=== PATIENT | female | born 1960 | race Caucasian/White ===

== ENCOUNTER → 2017-10-07 | Outpatient (CLI) | payer BC ==
--- NOTE | 2017-10-07 13:49 | Diagnostic Imaging Report ---
EXAM: Thyroid Ultrasound INDICATION: NON TOXIC GOITER COMPARISON: None TECHNIQUE: Transverse and sagittal images were obtained of the thyroid gland. FINDINGS: Thyroid gland: Size: Right lobe 2.6 x 0.4 x 1.1 cm, Normal in size Left lobe 3.4 x 0.4 x 0.8 cm, Normal in size Isthmus 0.2 cm, Normal in size Appearance: Heterogeneous echotexture without increased vascularity Masses/Nodules: None Parathyroid: No focal parathyroid masses. IMPRESSION: Atrophic thyroid. No focal nodules. Signed by: Dr. Estrella Odom M.D. on 10/07/2017 1:45 PM
== END | disposition home or self-care (01) ==
LOC: US 11:49
PROVIDERS: ATTEND General Practice
DX: E04.9 Nontoxic goiter, unspecified (principal); E03.4 Atrophy of thyroid (acquired)
CPT/HCPCS: 76536

== ENCOUNTER 2021-09-29 11:30 | Emergency (ER) | payer BC ==
[~2021-09-29] VITALS: Ht 157.5 cm; Wt 77.1 kg
[2021-09-29] MEDS ORDERED: ELIQUIS5 MG PO (11:49)
[2021-09-29] MEDS ORDERED: ALPRAZOLAM0.5 MG PO (11:50)
[2021-09-29 12:22] LABS: BASOPHILS # (AUTO) 0.1 (0.0-0.1); BASOPHILS % 1.4 % (0.0-1.0); EOSINOPHILS # (AUTO) 0.3 (0.0-0.4); HEMATOCRIT 39.4 % (34.2-44.1); HEMOGLOBIN 12.7 g/dL (12.0-16.0); LYMPHOCYTES # (AUTO) 1.2 (1.0-3.2); LYMPHOCYTES % 18.8 % (18.0-39.1); MEAN CORPUSCULAR HEMOGLOBIN 31.5 pg (28-32); MEAN CORPUSCULAR HGB CONC 32.2 g/dL (31-35); MEAN CORPUSCULAR VOLUME 97.8 fL (81-99); MONOCYTES # (AUTO) 0.5 (0.2-0.8); MONOCYTES % 7.9 % (4.4-11.3); NEUTROPHILS # (AUTO) 4.4 (2.1-6.9); NEUTROPHILS % 66.4 % (38.7-80.0); PLATELET COUNT 237 x10e3/uL (140-360); RED BLOOD COUNT 4.03 x10e6/uL (3.6-5.1); RED CELL DISTRIBUTION WIDTH 12.8 % (11.7-14.4)
[2021-09-29 12:41] LABS: INR 0.91; PROTHROMBIN TIME 13.1 seconds (11.9-14.5)
[2021-09-29 12:42] LABS: PARTIAL THROMBOPLASTIN TIME 28.3 seconds (23.8-35.5)
[2021-09-29 12:50] LABS: ALANINE AMINOTRANSFERASE 36 IU/L (0-55); ALBUMIN 3.5 g/dL (3.5-5.0); ALBUMIN/GLOBULIN RATIO 0.9 (0.8-2.0); ALKALINE PHOSPHATASE 87 IU/L (40-150); ANION GAP 13.2 mmol/L (8-16); BLOOD UREA NITROGEN 15 mg/dL (7-26); BUN/CREATININE RATIO 16 (6-25); CALCIUM 8.6 mg/dL (8.4-10.2); CARBON DIOXIDE 31 mmol/L (22-29); CHLORIDE 103 mmol/L (98-107); CREATINE KINASE 80 IU/L (29-168); CREATININE, SERUM 0.94 mg/dL (0.57-1.11); GLUCOSE 93 mg/dL (74-118); POTASSIUM 4.2 mmol/L (3.5-5.1); SODIUM 143 mmol/L (136-145)
[2021-09-29] MEDS ORDERED: IOPAMIDOL 370 MG/ML 100 ML INFUS..BTL INJ ONE (13:09)
[2021-09-29] MEDS ORDERED: AZITHROMYCIN250 MG PO (14:24)
[2021-09-29] MEDS ORDERED: VENTOLIN HFA18 GM INH (14:24)
== END 2021-09-29 14:30 | disposition home or self-care (01) ==
LOC: ER 11:32
DX: J44.1 Chronic obstructive pulmonary disease with (acute) exacerbation (principal); I10 Essential (primary) hypertension; E03.9 Hypothyroidism, unspecified; Z86.718 Personal history of other venous thrombosis and embolism
CPT/HCPCS: 36415; 71260; 80053; 82550; 82553; 83880; 84484; 85025; 85610; 85730; 93005; 99284; Q9967

== ENCOUNTER 2023-04-15 20:35 | Inpatient (IN) | payer BC ==
[~2023-04-15] VITALS: Ht 157.5 cm; Wt 86.3 kg
[~2023-04-15 20:35] MED LIST: ALPRAZOLAM0.5 MG PO; AZITHROMYCIN250 MG PO; ELIQUIS5 MG PO; VENTOLIN HFA18 GM INH
[2023-04-15] MEDS ORDERED: ALBUTEROL/IPRATROPIUM 3 ML NEB NEB STA (20:39)
[2023-04-15 21:19] LABS: BASOPHILS # (AUTO) 0.1 (0.0-0.1); BASOPHILS % 0.5 % (0.0-1.0); EOSINOPHILS % 0.2 % (0.0-6.0); HEMATOCRIT 31.1 % (34.2-44.1); HEMOGLOBIN 10.1 g/dL (12.0-16.0); LYMPHOCYTES # (AUTO) 0.5 (1.0-3.2); MEAN CORPUSCULAR HGB CONC 32.5 g/dL (31-35); MEAN CORPUSCULAR VOLUME 98.4 fL (81-99); MONOCYTES # (AUTO) 0.4 (0.2-0.8); MONOCYTES % 3.6 % (4.4-11.3); NEUTROPHILS # (AUTO) 8.4 (2.1-6.9); NEUTROPHILS % 86.1 % (38.7-80.0); PLATELET COUNT 217 x10e3/uL (140-360); RED BLOOD COUNT 3.16 x10e6/uL (3.6-5.1); WHITE BLOOD COUNT 9.76 x10e3/uL (4.8-10.8)
[2023-04-15 21:36] LABS: ALBUMIN 3.6 g/dL (3.5-5.0); ALBUMIN/GLOBULIN RATIO 1.2 (0.8-2.0); ANION GAP 17.1 mmol/L (8-16); BILIRUBIN,TOTAL 0.6 mg/dL (0.2-1.2); CALCIUM 9.8 mg/dL (8.4-10.2); CREATININE, SERUM 1.03 mg/dL (0.57-1.11); POTASSIUM 4.1 mmol/L (3.5-5.1); TOTAL PROTEIN 6.7 g/dL (6.5-8.1)
[2023-04-15 21:42] LABS: TROPONIN I 0.028 ng/mL (0-0.300)
[2023-04-15 22:42] VITALS: PULSE 83; RESP 21; O2SAT 99
[2023-04-15] MEDS: SODIUM CHLORIDE 0.9% 1000ML 1,000 ML IV SCH (22:43)
[2023-04-16] VITALS (16 sets, daily range): BP systolic 114–165; BP diastolic 68–105; PULSE 59–103; RESP 18–24; TEMP 97.4–99.2; O2SAT 90–100
[2023-04-16] MEDS ORDERED: BREZTRI AEROS10.7 GM IH (00:12)
[2023-04-16] MEDS ORDERED: UNITHROID200 MCG PO (00:12)
[2023-04-16] MEDS ORDERED: UNITHROID75 MCG PO (00:12)
[2023-04-16] MEDS ORDERED: AIRSUPRA 90-810.7 GM INH (00:12)
[2023-04-16] MEDS ORDERED: LISINOPRIL-HCT1 EAC2 PO (00:28)
[2023-04-16] MEDS ORDERED: PREDNISONE10 MG PO (00:28)
[2023-04-16] MEDS: ALBUTEROL/IPRATROPIUM 3 ML NEB NEB PRN ×5 (03:32→23:31)
[2023-04-16] MEDS: SODIUM CHLORIDE 0.9% 1000ML 1,000 ML IV SCH ×3 (05:24→22:38)
[2023-04-16 05:36] LABS: BASOPHILS % 0.2 % (0.0-1.0); HEMATOCRIT 28.4 % (34.2-44.1); HEMOGLOBIN 9.4 g/dL (12.0-16.0); LYMPHOCYTES # (AUTO) 0.4 (1.0-3.2); LYMPHOCYTES % 4.6 % (18.0-39.1); MEAN CORPUSCULAR HEMOGLOBIN 31.8 pg (28-32); MEAN CORPUSCULAR HGB CONC 33.1 g/dL (31-35); MEAN CORPUSCULAR VOLUME 95.9 fL (81-99); MONOCYTES # (AUTO) 0.3 (0.2-0.8); MONOCYTES % 2.7 % (4.4-11.3); NEUTROPHILS # (AUTO) 8.1 (2.1-6.9); NEUTROPHILS % 85.3 % (38.7-80.0); PLATELET COUNT 217 x10e3/uL (140-360); RED BLOOD COUNT 2.96 x10e6/uL (3.6-5.1)
[2023-04-16] MEDS ORDERED: METHYLPREDNISOLONE SOD SUCC 125 MG/2ML VIAL IV SCH (06:00)
[2023-04-16 06:08] LABS: ALBUMIN 3.5 g/dL (3.5-5.0); ALBUMIN/GLOBULIN RATIO 1.3 (0.8-2.0); ANION GAP 14.4 mmol/L (8-16); BILIRUBIN,TOTAL 0.6 mg/dL (0.2-1.2); CALCIUM 9.6 mg/dL (8.4-10.2); POTASSIUM 4.4 mmol/L (3.5-5.1); TOTAL PROTEIN 6.3 g/dL (6.5-8.1)
[2023-04-16 06:13] LABS: TROPONIN I 0.216 ng/mL (0-0.300)
[2023-04-16] MEDS ORDERED: ALBUTEROL/IPRATROPIUM 3 ML NEB NEB SCH (07:00)
[2023-04-16 07:46] LABS: TROPONIN I 0.23 ng/mL (0-0.300)
[2023-04-16] MEDS ORDERED: ONDANSETRON HCL INJ 2MG/ML 2ML 2 MG/ML VIAL IV PRN (10:30)
[2023-04-16] MEDS ORDERED: GUAIFENESIN/DEXTROMETHORPHAN LIQD 5 ML UDC NG PRN (10:30)
[2023-04-16] MEDS ORDERED: METOPROLOL TARTRATE INJ 1 MG/ML VIAL IV PRN (10:30)
[2023-04-16] MEDS ORDERED: DOCUSATE SODIUM 100 MG CAP PO PRN (10:30)
[2023-04-16] MEDS ORDERED: SIMETHICONE 80 MG CHEW PO PRN (10:30)
[2023-04-16 11:19] LABS: BAND NEUTROPHILS % (MANUAL) 5 %; BASOPHILS % (MANUAL) 1 % (0-1.5); LYMPHOCYTES % (MANUAL) 6 % (19-48); METAMYELOCYTES % (MANUAL) 1 % (0-0); MONOCYTES % (MANUAL) 2 % (3.4-9.0); MYELOCYTES % (MANUAL) 2 % (0-0); NEUTROPHILS % (MANUAL) 83 % (40-74); PLATELET ESTIMATE ADEQUATE; PLATELET MORPHOLOGY COMMENT NORMAL
[2023-04-16] MEDS ORDERED: LEVOTHYROXINE SODIUM 75 MCG TAB PO SCH (11:30)
[2023-04-16] MEDS: ACETAMINOPHEN 325 MG TAB PO PRN ×2 (11:53→22:36)
[2023-04-16] MEDS ORDERED: DOXYCYCLINE HYCLATE TABLET 100 MG TAB PO SCH (14:00)
[2023-04-16] MEDS ORDERED: WATER STERILE 10 ML VIAL ONE (14:17)
[2023-04-16] MEDS ORDERED: SUCCINYLCHOLINE CHLORIDE 20 MG/ML 10ML VIAL ONE (14:17)
[2023-04-16] MEDS ORDERED: MIDAZOLAM HCL 2 MG/2 ML VIAL ONE (14:17)
[2023-04-16] MEDS ORDERED: VECURONIUM BROMIDE FOR INJ 20 MG VIAL ONE (14:17)
[2023-04-16] MEDS: METHYLPREDNISOLONE SOD SUCC 40 MG/ML VIAL 1ML IV SCH ×2 (15:13→22:37)
[2023-04-16] MEDS: BENZONATATE 100 MG CAP PO SCH ×2 (15:14→22:37)
[2023-04-16] MEDS: APIXABAN 5 MG TABLET PO SCH ×2 (16:40→16:44)
[2023-04-16] MEDS: ALPRAZOLAM 0.5 MG TAB PO SCH ×3 (16:40→22:35)
[2023-04-17] VITALS (22 sets, daily range): BP systolic 91–154; BP diastolic 45–79; PULSE 61–91; RESP 14–24; TEMP 97.4–99.4; O2SAT 94–100
[2023-04-17] MEDS: ALBUTEROL/IPRATROPIUM 3 ML NEB NEB PRN ×3 (03:50→19:09)
[2023-04-17] MEDS: METHYLPREDNISOLONE SOD SUCC 40 MG/ML VIAL 1ML IV SCH ×3 (05:07→21:05)
[2023-04-17] MEDS: GUAIFENESIN/CODEINE 5 ML LIQD PO PRN (05:32)
[2023-04-17 07:03] LABS: TROPONIN I 0.298 ng/mL (0-0.300)
[2023-04-17] MEDS: BENZONATATE 100 MG CAP PO SCH ×4 (08:08→21:05)
[2023-04-17] MEDS: APIXABAN 5 MG TABLET PO SCH ×2 (08:08→16:50)
[2023-04-17] MEDS: SODIUM CHLORIDE 0.9% 1000ML 1,000 ML IV SCH ×3 (08:09→21:05)
[2023-04-17] MEDS: ASPIRIN 81 MG ENTERIC COATED PO SCH (08:09)
[2023-04-17] MEDS ORDERED: LEVOTHYROXINE SODIUM 200 MCG PO SCH (09:00)
[2023-04-17] MEDS ORDERED: LISINOPRIL 2.5 MG TAB PO ONE (13:00)
[2023-04-17] MEDS: ALPRAZOLAM 0.5 MG TAB PO SCH (16:50)
[2023-04-17] MEDS ORDERED: METHYLPREDNISOLONE SOD SUCC 40 MG/ML VIAL 1ML IV ONE (17:45)
[2023-04-17] MEDS ORDERED: BUDESONIDE/FORMOTEROL 160/4.5MCG INHALER INH SCH (19:00)
[2023-04-17 19:16] LABS: ABG PCO2 68 mmHg (35-45)
[2023-04-17 19:17] LABS: ABG HCO3 33 mmol/L (22-26); ABG PO2 72 mmHg (80-105); ABG TCO2 35
[2023-04-18] VITALS (73 sets, daily range): BP systolic 88–154; BP diastolic 42–98; PULSE 63–138; RESP 12–28; TEMP 97.5–98; O2SAT 83–100
[2023-04-18] MEDS: GUAIFENESIN/CODEINE 5 ML LIQD PO PRN (04:22)
[2023-04-18] MEDS: ALBUTEROL/IPRATROPIUM 3 ML NEB NEB PRN ×4 (04:29→19:45)
[2023-04-18 05:25] LABS: BASOPHILS % 0.3 % (0.0-1.0); HEMOGLOBIN 8.5 g/dL (12.0-16.0); LYMPHOCYTES # (AUTO) 0.6 (1.0-3.2); LYMPHOCYTES % 8.8 % (18.0-39.1); MEAN CORPUSCULAR HEMOGLOBIN 31.8 pg (28-32); MEAN CORPUSCULAR HGB CONC 31.5 g/dL (31-35); MEAN CORPUSCULAR VOLUME 101.1 fL (81-99); MONOCYTES # (AUTO) 0.5 (0.2-0.8); MONOCYTES % 6.9 % (4.4-11.3); NEUTROPHILS # (AUTO) 5.5 (2.1-6.9); NEUTROPHILS % 77.5 % (38.7-80.0); PLATELET COUNT 167 x10e3/uL (140-360); RED BLOOD COUNT 2.67 x10e6/uL (3.6-5.1); RED CELL DISTRIBUTION WIDTH 13.5 % (11.7-14.4); WHITE BLOOD COUNT 7.07 x10e3/uL (4.8-10.8)
[2023-04-18 05:48] LABS: ANION GAP 11.5 mmol/L (8-16); CREATININE, SERUM 0.82 mg/dL (0.57-1.11); POTASSIUM 4.5 mmol/L (3.5-5.1)
[2023-04-18] MEDS: TIOTROPIUM 18 MCG INH POWDER INH SCH ×2 (06:00→10:04)
[2023-04-18] MEDS: SODIUM CHLORIDE 0.9% 1000ML 1,000 ML IV SCH ×2 (06:23→16:12)
[2023-04-18 07:20] LABS: LYMPHOCYTES % (MANUAL) 8 % (19-48); MONOCYTES % (MANUAL) 3 % (3.4-9.0); MYELOCYTES % (MANUAL) 1 % (0-0); NEUTROPHILS % (MANUAL) 88 % (40-74)
[2023-04-18 07:22] LABS: PLATELET ESTIMATE ADEQUATE; PLATELET MORPHOLOGY COMMENT NORMAL; RBC MORPHOLOGY COMMENT NORMAL
[2023-04-18] MEDS: METHYLPREDNISOLONE SOD SUCC 40 MG/ML VIAL 1ML IV SCH ×2 (08:39→21:09)
[2023-04-18] MEDS: LISINOPRIL 2.5 MG TAB PO SCH (08:40)
[2023-04-18] MEDS: APIXABAN 5 MG TABLET PO SCH ×2 (08:40→16:12)
[2023-04-18] MEDS: BENZONATATE 100 MG CAP PO SCH ×3 (08:40→21:00)
[2023-04-18] MEDS: ALPRAZOLAM 0.5 MG TAB PO SCH ×2 (08:40→16:12)
[2023-04-18] MEDS: ASPIRIN 81 MG ENTERIC COATED PO SCH (08:40)
[2023-04-18] MEDS: LORAZEPAM INJ 2 MG/ML VIAL IV PRN (23:02)
[2023-04-19] VITALS (26 sets, daily range): BP systolic 102–157; BP diastolic 47–84; PULSE 67–95; RESP 13–27; TEMP 97–99.2; O2SAT 66–100
[2023-04-19] MEDS: ALBUTEROL/IPRATROPIUM 3 ML NEB NEB PRN ×3 (01:05→12:14)
[2023-04-19] MEDS: SODIUM CHLORIDE 0.9% 1000ML 1,000 ML IV SCH ×3 (01:19→17:23)
[2023-04-19 05:47] LABS: BASOPHILS % 0.7 % (0.0-1.0); EOSINOPHILS % 0.2 % (0.0-6.0); HEMOGLOBIN 8.1 g/dL (12.0-16.0); LYMPHOCYTES % 16.7 % (18.0-39.1); MEAN CORPUSCULAR HEMOGLOBIN 31.9 pg (28-32); MEAN CORPUSCULAR HGB CONC 31.2 g/dL (31-35); MEAN CORPUSCULAR VOLUME 102.4 fL (81-99); MONOCYTES # (AUTO) 0.5 (0.2-0.8); MONOCYTES % 8.5 % (4.4-11.3); NEUTROPHILS # (AUTO) 4.1 (2.1-6.9); NEUTROPHILS % 65.9 % (38.7-80.0); PLATELET COUNT 155 x10e3/uL (140-360); RED BLOOD COUNT 2.54 x10e6/uL (3.6-5.1); RED CELL DISTRIBUTION WIDTH 13.3 % (11.7-14.4); WHITE BLOOD COUNT 6.15 x10e3/uL (4.8-10.8)
[2023-04-19 05:57] LABS: ANION GAP 9.5 mmol/L (8-16); CALCIUM 7.9 mg/dL (8.4-10.2); CREATININE, SERUM 0.75 mg/dL (0.57-1.11); POTASSIUM 4.5 mmol/L (3.5-5.1)
[2023-04-19] MEDS: TIOTROPIUM 18 MCG INH POWDER INH SCH (06:00)
[2023-04-19] MEDS: BENZONATATE 100 MG CAP PO SCH ×3 (09:20→19:48)
[2023-04-19] MEDS: LISINOPRIL 2.5 MG TAB PO SCH (09:20)
[2023-04-19] MEDS: APIXABAN 5 MG TABLET PO SCH ×2 (09:20→17:21)
[2023-04-19] MEDS: ALPRAZOLAM 0.5 MG TAB PO SCH ×2 (09:20→17:21)
[2023-04-19] MEDS: ASPIRIN 81 MG ENTERIC COATED PO SCH (09:20)
[2023-04-19] MEDS: METHYLPREDNISOLONE SOD SUCC 40 MG/ML VIAL 1ML IV SCH ×2 (09:21→19:48)
[2023-04-19] MEDS ORDERED: LEVOTHYROXINE SODIUM 75 MCG TAB PO SCH (10:30)
[2023-04-19] MEDS: LEVOTHYROXINE SODIUM 100 MCG TAB PO SCH (11:22)
[2023-04-19] MEDS: LEVOTHYROXINE SODIUM 25 MCG TABLET PO SCH (11:23)
[2023-04-19] MEDS ORDERED: RIBAVIRIN 600 MG PO SCH (14:00)
[2023-04-19] MEDS: RIBAVIRIN 200 MG PO SCH ×2 (14:26→19:48)
[2023-04-19] MEDS: TAMSULOSIN HCL 0.4 MG CAP PO SCH (17:21)
[2023-04-19] MEDS: GUAIFENESIN/CODEINE 5 ML LIQD PO PRN (19:48)
[2023-04-19] MEDS: LORAZEPAM INJ 2 MG/ML VIAL IV PRN (21:51)
[2023-04-20] VITALS (61 sets, daily range): BP systolic 65–159; BP diastolic 49–93; PULSE 51–87; RESP 7–24; TEMP 97.1–99.4; O2SAT 98–100
[2023-04-20] MEDS: SODIUM CHLORIDE 0.9% 1000ML 1,000 ML IV SCH ×4 (02:21→19:30)
[2023-04-20] MEDS ORDERED: LEVOTHYROXINE SODIUM 75 MCG TAB PO SCH (06:00)
[2023-04-20] MEDS: APIXABAN 5 MG TABLET PO SCH ×4 (09:00→19:29)
[2023-04-20] MEDS: LISINOPRIL 2.5 MG TAB PO SCH ×2 (09:00→09:59)
[2023-04-20] MEDS: METHYLPREDNISOLONE SOD SUCC 40 MG/ML VIAL 1ML IV SCH ×3 (09:11→19:29)
[2023-04-20] MEDS: TAMSULOSIN HCL 0.4 MG CAP PO SCH (09:58)
[2023-04-20] MEDS: LEVOTHYROXINE SODIUM 100 MCG TAB PO SCH (09:58)
[2023-04-20] MEDS: LEVOTHYROXINE SODIUM 25 MCG TABLET PO SCH (09:58)
[2023-04-20] MEDS: RIBAVIRIN 200 MG PO SCH ×3 (09:58→19:29)
[2023-04-20] MEDS: ASPIRIN 81 MG ENTERIC COATED PO SCH (09:59)
[2023-04-20] MEDS: BENZONATATE 100 MG CAP PO SCH (09:59)
[2023-04-20] MEDS: PROPOFOL IV EMULSION 10MG/ML 100 ML IV PRN ×3 (11:32→23:30)
[2023-04-20] MEDS: LEVOTHYROXINE SODIUM 100 MCG/VIAL IV SCH (12:03)
[2023-04-20] MEDS: NOREPINEPHRINE 8 MG/D5W 250 ML 250 ML IV SCH (12:07)
[2023-04-20 12:29] LABS: ABG HCO3 38 mmol/L (22-26); ABG PCO2 101 mmHg (35-45); ABG PH 7.19 (7.35-7.45); ABG PO2 130 mmHg (80-105); ABG TCO2 41
[2023-04-20] MEDS: ALBUTEROL/IPRATROPIUM 3 ML NEB NEB SCH ×4 (12:45→23:19)
[2023-04-20 13:21] LABS: ABG PH 7.23 (7.35-7.45)
[2023-04-20 13:22] LABS: ABG HCO3 37 mmol/L (22-26); ABG PCO2 87 mmHg (35-45); ABG PO2 232 mmHg (80-105); ABG TCO2 39
[2023-04-20] MEDS: FENTANYL 2000MCG/NS 250 250 ML IV PRN (13:55)
[2023-04-20] MEDS ORDERED: SODIUM CHLORIDE 0.9% 250ML 250 ML IV ONE (15:00)
[2023-04-20] MEDS ORDERED: SODIUM CHLORIDE 0.9% 250ML 250 ML IV SCH (15:00)
[2023-04-20] MEDS ORDERED: PERIPHERAL TPN FORMULA 1 BAG IV SCH (20:00)
[2023-04-21] VITALS (118 sets, daily range): BP systolic 101–186; BP diastolic 50–95; PULSE 52–92; RESP 11–24; TEMP 97.5–99.2; O2SAT 95–100
[2023-04-21] MEDS: METHYLPREDNISOLONE SOD SUCC 40 MG/ML VIAL 1ML IV SCH ×3 (03:05→17:17)
[2023-04-21] MEDS: ALBUTEROL/IPRATROPIUM 3 ML NEB NEB SCH ×6 (03:18→23:10)
[2023-04-21] MEDS: RIBAVIRIN 200 MG PO SCH ×3 (05:39→21:30)
[2023-04-21] MEDS: ASPIRIN 81 MG ENTERIC COATED PO SCH (07:11)
[2023-04-21] MEDS: PROPOFOL IV EMULSION 10MG/ML 100 ML IV PRN (07:20)
[2023-04-21 07:22] LABS: ALBUMIN 2.7 g/dL (3.5-5.0); ALBUMIN/GLOBULIN RATIO 1.1 (0.8-2.0); ANION GAP 10.4 mmol/L (8-16); BILIRUBIN,TOTAL 0.5 mg/dL (0.2-1.2); CALCIUM 8.1 mg/dL (8.4-10.2); CREATININE, SERUM 0.8 mg/dL (0.57-1.11); POTASSIUM 4.4 mmol/L (3.5-5.1); TOTAL PROTEIN 5.2 g/dL (6.5-8.1)
[2023-04-21] MEDS: FENTANYL 2000MCG/NS 250 250 ML IV PRN (07:34)
[2023-04-21] MEDS: LEVOTHYROXINE SODIUM 100 MCG/VIAL IV SCH (07:36)
[2023-04-21] MEDS ORDERED: LISINOPRIL 2.5 MG TAB PO PRN (10:00)
[2023-04-21 10:35] LABS: ABG HCO3 35 mmol/L (22-26); ABG PCO2 78 mmHg (35-45); ABG PH 7.26 (7.35-7.45); ABG PO2 73 mmHg (80-105); ABG TCO2 37
[2023-04-21] MEDS: LISINOPRIL 2.5 MG TAB PO SCH (10:49)
[2023-04-21] MEDS: NOREPINEPHRINE 8 MG/D5W 250 ML 250 ML IV SCH (11:24)
[2023-04-21 14:46] LABS: FREE T4 (FREE THYROXINE) 0.49 ng/dL (0.8-1.8); THYROID STIMULATING HORMONE 18.618 uIU/mL (0.350-4.940)
[2023-04-21] MEDS: SODIUM CHLORIDE 0.9% 1000ML 1,000 ML IV SCH ×2 (16:00→21:44)
[2023-04-21] MEDS: APIXABAN 5 MG TABLET PO SCH (17:17)
[2023-04-22] VITALS (58 sets, daily range): BP systolic 98–187; BP diastolic 47–85; PULSE 60–101; RESP 0–23; TEMP 97.8–99.1; O2SAT 97–100
[2023-04-22] MEDS: METHYLPREDNISOLONE SOD SUCC 40 MG/ML VIAL 1ML IV SCH ×3 (00:09→16:15)
[2023-04-22] MEDS: FENTANYL 2000MCG/NS 250 250 ML IV PRN ×2 (01:01→12:08)
[2023-04-22] MEDS: ALBUTEROL/IPRATROPIUM 3 ML NEB NEB SCH ×6 (03:07→23:20)
[2023-04-22] MEDS: RIBAVIRIN 200 MG PO SCH ×3 (05:30→22:01)
[2023-04-22] MEDS ORDERED: LEVOTHYROXINE SODIUM 112 MCG TAB NG SCH (06:00)
[2023-04-22 07:07] LABS: ALBUMIN 2.6 g/dL (3.5-5.0); ALBUMIN/GLOBULIN RATIO 1.1 (0.8-2.0); ANION GAP 8.8 mmol/L (8-16); BILIRUBIN,TOTAL 0.3 mg/dL (0.2-1.2); CREATININE, SERUM 0.75 mg/dL (0.57-1.11); POTASSIUM 4.8 mmol/L (3.5-5.1); TOTAL PROTEIN 4.9 g/dL (6.5-8.1)
[2023-04-22] MEDS: ASPIRIN 81 MG ENTERIC COATED PO SCH (08:01)
[2023-04-22] MEDS: APIXABAN 5 MG TABLET PO SCH ×2 (08:01→16:15)
[2023-04-22] MEDS: LISINOPRIL 2.5 MG TAB PO SCH (08:01)
[2023-04-22 08:19] LABS: MEAN CORPUSCULAR HEMOGLOBIN 32.1 pg (28-32); MEAN CORPUSCULAR HGB CONC 31.7 g/dL (31-35); MEAN CORPUSCULAR VOLUME 101.4 fL (81-99); PLATELET COUNT 198 x10e3/uL (140-360); RED BLOOD COUNT 2.18 x10e6/uL (3.6-5.1); RED CELL DISTRIBUTION WIDTH 13.2 % (11.7-14.4); WHITE BLOOD COUNT 14.89 x10e3/uL (4.8-10.8)
[2023-04-22 08:27] LABS: HEMATOCRIT 22.1 % (34.2-44.1)
[2023-04-22 09:55] LABS: ABG PH 7.35 (7.35-7.45)
[2023-04-22 09:56] LABS: ABG HCO3 38 mmol/L (22-26); ABG PCO2 68 mmHg (35-45); ABG PO2 178 mmHg (80-105); ABG TCO2 40
[2023-04-22] MEDS ORDERED: FUROSEMIDE INJ 10 MG/ML 2 ML VIAL IV ONE (10:00)
[2023-04-22] MEDS: NOREPINEPHRINE 8 MG/D5W 250 ML 250 ML IV SCH (11:08)
[2023-04-22 14:49] LABS: ABG PH 7.27 (7.35-7.45)
[2023-04-22 14:50] LABS: ABG HCO3 40 mmol/L (22-26); ABG PCO2 87 mmHg (35-45); ABG PO2 104 mmHg (80-105); ABG TCO2 42
[2023-04-22] MEDS: DEXMEDETOMIDINE 400MCG/NS100ML 100 ML IV PRN (16:46)
[2023-04-22] MEDS ORDERED: MUPIROCIN 2% OINT 22 GM TUBE TOP SCH (17:00)
[2023-04-23] VITALS (24 sets, daily range): BP systolic 88–174; BP diastolic 49–80; PULSE 61–94; RESP 11–20; TEMP 98.6–99.5; O2SAT 96–100
[2023-04-23] MEDS: FENTANYL 2000MCG/NS 250 250 ML IV PRN ×3 (00:42→23:50)
[2023-04-23] MEDS: ALBUTEROL/IPRATROPIUM 3 ML NEB NEB SCH ×6 (03:27→22:58)
[2023-04-23 06:03] LABS: BASOPHILS % 0.2 % (0.0-1.0); EOSINOPHILS % 0.1 % (0.0-6.0); HEMATOCRIT 23.2 % (34.2-44.1); LYMPHOCYTES # (AUTO) 1.6 (1.0-3.2); LYMPHOCYTES % 11.9 % (18.0-39.1); MEAN CORPUSCULAR VOLUME 103.1 fL (81-99); MONOCYTES # (AUTO) 0.7 (0.2-0.8); MONOCYTES % 5.7 % (4.4-11.3); NEUTROPHILS # (AUTO) 10.5 (2.1-6.9); PLATELET COUNT 253 x10e3/uL (140-360); RED BLOOD COUNT 2.25 x10e6/uL (3.6-5.1); RED CELL DISTRIBUTION WIDTH 13.4 % (11.7-14.4); WHITE BLOOD COUNT 13.06 x10e3/uL (4.8-10.8)
[2023-04-23 06:18] LABS: HEMOGLOBIN 7.3 g/dL (12.0-16.0)
[2023-04-23 06:20] LABS: ANION GAP 11.6 mmol/L (8-16); CALCIUM 8.6 mg/dL (8.4-10.2); CREATININE, SERUM 0.78 mg/dL (0.57-1.11); POTASSIUM 4.6 mmol/L (3.5-5.1)
[2023-04-23] MEDS: LEVOTHYROXINE SODIUM 100 MCG TAB NG SCH (06:27)
[2023-04-23] MEDS: RIBAVIRIN 200 MG PO SCH ×3 (06:27→21:38)
[2023-04-23] MEDS: SODIUM CHLORIDE 0.9% 1000ML 1,000 ML IV SCH (08:00)
[2023-04-23] MEDS: METHYLPREDNISOLONE SOD SUCC 40 MG/ML VIAL 1ML IV SCH (08:02)
[2023-04-23] MEDS: ASPIRIN 81 MG ENTERIC COATED PO SCH (08:02)
[2023-04-23] MEDS: APIXABAN 5 MG TABLET PO SCH ×2 (08:03→17:53)
[2023-04-23] MEDS: LISINOPRIL 2.5 MG TAB PO SCH (08:03)
[2023-04-23] MEDS: MUPIROCIN 2% OINT 22 GM TUBE TOP SCH ×2 (08:03→21:38)
[2023-04-23 11:08] LABS: ABG PH 7.37 (7.35-7.45)
[2023-04-23 11:09] LABS: ABG HCO3 40 mmol/L (22-26); ABG PCO2 69 mmHg (35-45); ABG PO2 85 mmHg (80-105); ABG TCO2 42
[2023-04-23] MEDS: NOREPINEPHRINE 8 MG/D5W 250 ML 250 ML IV SCH (12:00)
[2023-04-23 15:08] LABS: BILIRUBIN,URINE NEGATIVE (NEGATIVE); COLOR,URINE YELLOW (YELLOW); GLUCOSE, URINE NEGATIVE (NEGATIVE); KETONES,URINE NEGATIVE (NEGATIVE); LEUKOCYTE ESTERASE ,URINE NEGATIVE (NEGATIVE); NITRITE,URINE NEGATIVE (NEGATIVE); PH,URINE 7 (5 - 7); PROTEIN,URINE DIPSTICK NEGATIVE (NEGATIVE); URINE UROBILINOGEN 1 mg/dL (0.2 - 1)
[2023-04-23 15:17] LABS: BACTERIA,URINE MODERATE /HPF; RBC,URINE >50 /HPF (0-5)
[2023-04-23 15:18] LABS: CLARITY,URINE SL CLOUDY (CLEAR); EPITHELIAL CELLS,URINE FEW /LPF; RENAL EPITHELIAL CELLS,URINE FEW
[2023-04-23] MEDS ORDERED: METHYLPREDNISOLONE SOD SUCC 40 MG/ML VIAL 1ML IV SCH (17:00)
[2023-04-24] VITALS (75 sets, daily range): BP systolic 61–184; BP diastolic 35–133; PULSE 55–107; RESP 8–34; TEMP 98.7–100.1; O2SAT 93–100
[2023-04-24] MEDS: ALBUTEROL/IPRATROPIUM 3 ML NEB NEB SCH ×6 (03:22→22:58)
[2023-04-24] MEDS: SODIUM CHLORIDE 0.9% 1000ML 1,000 ML IV SCH (04:00)
[2023-04-24] MEDS: LEVOTHYROXINE SODIUM 100 MCG TAB NG SCH (05:03)
[2023-04-24] MEDS: RIBAVIRIN 200 MG PO SCH ×3 (05:03→22:08)
[2023-04-24 06:20] LABS: BASOPHILS % 0.1 % (0.0-1.0); EOSINOPHILS % 0.2 % (0.0-6.0); LYMPHOCYTES # (AUTO) 1.3 (1.0-3.2); LYMPHOCYTES % 10.7 % (18.0-39.1); MEAN CORPUSCULAR HEMOGLOBIN 32.4 pg (28-32); MEAN CORPUSCULAR HGB CONC 32.2 g/dL (31-35); MEAN CORPUSCULAR VOLUME 100.5 fL (81-99); MONOCYTES # (AUTO) 0.8 (0.2-0.8); MONOCYTES % 6.2 % (4.4-11.3); NEUTROPHILS % 80.9 % (38.7-80.0); PLATELET COUNT 200 x10e3/uL (140-360); RED BLOOD COUNT 2.13 x10e6/uL (3.6-5.1); RED CELL DISTRIBUTION WIDTH 13.6 % (11.7-14.4); WHITE BLOOD COUNT 12.31 x10e3/uL (4.8-10.8)
[2023-04-24 06:32] LABS: HEMATOCRIT 21.4 % (34.2-44.1); HEMOGLOBIN 6.9 g/dL (12.0-16.0)
[2023-04-24 06:40] LABS: ANION GAP 11.8 mmol/L (8-16); CREATININE, SERUM 0.67 mg/dL (0.57-1.11); POTASSIUM 4.8 mmol/L (3.5-5.1)
[2023-04-24] MEDS ORDERED: SODIUM CHLORIDE 0.9% 250ML 250 ML IV ONE (07:00)
[2023-04-24] MEDS ORDERED: METHYLPREDNISOLONE SOD SUCC 40 MG/ML VIAL 1ML IV SCH (09:00)
[2023-04-24] MEDS: APIXABAN 5 MG TABLET PO SCH (09:51)
[2023-04-24] MEDS: MUPIROCIN 2% OINT 22 GM TUBE TOP SCH ×2 (09:51→19:09)
[2023-04-24] MEDS: LISINOPRIL 2.5 MG TAB PO SCH (09:52)
[2023-04-24] MEDS: ASPIRIN 81 MG CHEW TAB PO SCH ×2 (10:36→11:00)
[2023-04-24] MEDS: NOREPINEPHRINE 8 MG/D5W 250 ML 250 ML IV SCH ×2 (12:00→19:09)
[2023-04-24] MEDS: FENTANYL 2000MCG/NS 250 250 ML IV PRN ×2 (12:32→20:44)
[2023-04-24] MEDS ORDERED: FUROSEMIDE INJ 10 MG/ML 2 ML VIAL IV ONE (13:00)
[2023-04-24] MEDS: LINEZOLID 600 MG/D5W 300ML 300 ML IV SCH (13:10)
[2023-04-24] MEDS: ENOXAPARIN SOD INJ 40 MG/0.4 ML SYR SC SCH (14:19)
[2023-04-24] MEDS: PROPOFOL IV EMULSION 10MG/ML 100 ML IV PRN (14:29)
[2023-04-24] MEDS: MEROPENEM 1 GM in SODIUM CHLORIDE 0.9% 100 ML IV SCH ×2 (14:43→22:08)
[2023-04-24 15:19] LABS: HEMATOCRIT 26.6 % (34.2-44.1); HEMOGLOBIN 8.7 g/dL (12.0-16.0)
[2023-04-24 16:28] LABS: ABG HCO3 44 mmol/L (22-26); ABG PCO2 80 mmHg (35-45); ABG PH 7.35 (7.35-7.45); ABG PO2 85 mmHg (80-105); ABG TCO2 46
[2023-04-25] VITALS (78 sets, daily range): BP systolic 73–192; BP diastolic 42–111; PULSE 50–111; RESP 9–21; TEMP 99–100.6; O2SAT 92–100
[2023-04-25] MEDS: LINEZOLID 600 MG/D5W 300ML 300 ML IV SCH ×3 (00:40→23:17)
[2023-04-25] MEDS: ALBUTEROL/IPRATROPIUM 3 ML NEB NEB SCH ×6 (03:17→23:16)
[2023-04-25] MEDS: MEROPENEM 1 GM in SODIUM CHLORIDE 0.9% 100 ML IV SCH ×3 (05:09→21:00)
[2023-04-25] MEDS: LEVOTHYROXINE SODIUM 100 MCG TAB NG SCH (05:09)
[2023-04-25] MEDS: FENTANYL 2000MCG/NS 250 250 ML IV PRN ×2 (05:10→15:34)
[2023-04-25] MEDS: RIBAVIRIN 200 MG PO SCH ×3 (06:00→21:00)
[2023-04-25 06:47] LABS: HEMATOCRIT 26.9 % (34.2-44.1); HEMOGLOBIN 8.6 g/dL (12.0-16.0); MEAN CORPUSCULAR HEMOGLOBIN 31.2 pg (28-32); MEAN CORPUSCULAR VOLUME 97.5 fL (81-99); PLATELET COUNT 248 x10e3/uL (140-360); RED BLOOD COUNT 2.76 x10e6/uL (3.6-5.1); RED CELL DISTRIBUTION WIDTH 17.4 % (11.7-14.4)
[2023-04-25 07:21] LABS: % IRON SATURATION 23 % (15-50); IRON 70 ug/dL (50-170); TOTAL IRON BINDING CAPACITY 309 ug/dL (261-478); TRANSFERRIN 221 mg/dL (180-382)
[2023-04-25 07:23] LABS: ALBUMIN 2.5 g/dL (3.5-5.0); ALBUMIN/GLOBULIN RATIO 0.8 (0.8-2.0); ANION GAP 13.6 mmol/L (8-16); BILIRUBIN,TOTAL 0.9 mg/dL (0.2-1.2); CALCIUM 8.2 mg/dL (8.4-10.2); CREATININE, SERUM 0.78 mg/dL (0.57-1.11); POTASSIUM 4.6 mmol/L (3.5-5.1); TOTAL PROTEIN 5.6 g/dL (6.5-8.1)
[2023-04-25] MEDS: MUPIROCIN 2% OINT 22 GM TUBE TOP SCH ×2 (08:32→20:59)
[2023-04-25] MEDS: ASPIRIN 81 MG CHEW TAB PO SCH (08:33)
[2023-04-25] MEDS: LISINOPRIL 2.5 MG TAB PO SCH (08:33)
[2023-04-25] MEDS: PROPOFOL IV EMULSION 10MG/ML 100 ML IV PRN (08:36)
[2023-04-25] MEDS ORDERED: METHYLPREDNISOLONE SOD SUCC 40 MG/ML VIAL 1ML IV SCH (09:00)
[2023-04-25 12:38] LABS: EOSINOPHILS % (MANUAL) 2 % (0-7); LYMPHOCYTES % (MANUAL) 11 % (19-48); MONOCYTES % (MANUAL) 5 % (3.4-9.0); NEUTROPHILS % (MANUAL) 82 % (40-74)
[2023-04-25 12:39] LABS: PLATELET ESTIMATE ADEQUATE; PLATELET MORPHOLOGY COMMENT NORMAL; RBC MORPHOLOGY COMMENT NORMAL
[2023-04-25] MEDS: ENOXAPARIN SOD INJ 40 MG/0.4 ML SYR SC SCH (16:53)
[2023-04-25] MEDS: NOREPINEPHRINE 8 MG/D5W 250 ML 250 ML IV SCH (19:21)
[2023-04-25] MEDS: SODIUM CHLORIDE 0.9% 1000ML 1,000 ML IV SCH ×2 (20:00)
[2023-04-26] VITALS (86 sets, daily range): BP systolic 83–176; BP diastolic 45–116; PULSE 54–108; RESP 7–26; TEMP 99.4–100.4; O2SAT 91–100
[2023-04-26] MEDS: PROPOFOL IV EMULSION 10MG/ML 100 ML IV PRN ×2 (00:13→23:25)
[2023-04-26] MEDS: FENTANYL 2000MCG/NS 250 250 ML IV PRN ×3 (00:15→23:26)
[2023-04-26] MEDS: ALBUTEROL/IPRATROPIUM 3 ML NEB NEB SCH ×6 (04:11→23:06)
[2023-04-26] MEDS: RIBAVIRIN 200 MG PO SCH (04:42)
[2023-04-26] MEDS: LEVOTHYROXINE SODIUM 100 MCG TAB NG SCH (04:42)
[2023-04-26] MEDS: MEROPENEM 1 GM in SODIUM CHLORIDE 0.9% 100 ML IV SCH ×3 (04:43→21:02)
[2023-04-26 06:33] LABS: BASOPHILS % 0.3 % (0.0-1.0); EOSINOPHILS # (AUTO) 0.2 (0.0-0.4); HEMATOCRIT 26.3 % (34.2-44.1); HEMOGLOBIN 8.2 g/dL (12.0-16.0); LYMPHOCYTES % 17.7 % (18.0-39.1); MEAN CORPUSCULAR HEMOGLOBIN 31.2 pg (28-32); MEAN CORPUSCULAR HGB CONC 31.2 g/dL (31-35); MONOCYTES # (AUTO) 1.1 (0.2-0.8); NEUTROPHILS # (AUTO) 7.9 (2.1-6.9); PLATELET COUNT 252 x10e3/uL (140-360); RED BLOOD COUNT 2.63 x10e6/uL (3.6-5.1); RED CELL DISTRIBUTION WIDTH 16.6 % (11.7-14.4); WHITE BLOOD COUNT 11.44 x10e3/uL (4.8-10.8)
[2023-04-26 06:55] LABS: ANION GAP 14.7 mmol/L (8-16); CALCIUM 8.4 mg/dL (8.4-10.2); CREATININE, SERUM 0.72 mg/dL (0.57-1.11); POTASSIUM 4.7 mmol/L (3.5-5.1)
[2023-04-26] MEDS: ASPIRIN 81 MG CHEW TAB PO SCH (08:37)
[2023-04-26] MEDS: MUPIROCIN 2% OINT 22 GM TUBE TOP SCH ×2 (08:38→20:54)
[2023-04-26] MEDS: METHYLPREDNISOLONE SOD SUCC 40 MG/ML VIAL 1ML IV SCH (08:38)
[2023-04-26 09:33] LABS: ABG HCO3 43 mmol/L (22-26); ABG PCO2 66 mmHg (35-45); ABG PH 7.42 (7.35-7.45); ABG PO2 88 mmHg (80-105); ABG TCO2 45
[2023-04-26] MEDS: LINEZOLID 600 MG/D5W 300ML 300 ML IV SCH ×2 (11:18→23:25)
[2023-04-26] MEDS: SODIUM CHLORIDE 0.9% 1000ML 1,000 ML IV SCH (16:00)
[2023-04-26] MEDS: DEXMEDETOMIDINE 400MCG/NS100ML 100 ML IV PRN (16:47)
[2023-04-26] MEDS: ENOXAPARIN SOD INJ 40 MG/0.4 ML SYR SC SCH (16:47)
[2023-04-27] VITALS (86 sets, daily range): BP systolic 70–172; BP diastolic 43–121; PULSE 44–122; RESP 4–25; TEMP 96.8–99.8; O2SAT 81–100
[2023-04-27] MEDS: ALBUTEROL/IPRATROPIUM 3 ML NEB NEB SCH ×6 (03:23→23:32)
[2023-04-27] MEDS: LEVOTHYROXINE SODIUM 100 MCG TAB NG SCH (05:20)
[2023-04-27] MEDS: MEROPENEM 1 GM in SODIUM CHLORIDE 0.9% 100 ML IV SCH ×3 (05:20→22:18)
[2023-04-27 06:39] LABS: BASOPHILS % 0.1 % (0.0-1.0); EOSINOPHILS # (AUTO) 0.2 (0.0-0.4); EOSINOPHILS % 2.7 % (0.0-6.0); HEMATOCRIT 23.9 % (34.2-44.1); HEMOGLOBIN 7.6 g/dL (12.0-16.0); LYMPHOCYTES # (AUTO) 1.3 (1.0-3.2); LYMPHOCYTES % 14.9 % (18.0-39.1); MEAN CORPUSCULAR HEMOGLOBIN 31.9 pg (28-32); MEAN CORPUSCULAR HGB CONC 31.8 g/dL (31-35); MEAN CORPUSCULAR VOLUME 100.4 fL (81-99); MONOCYTES # (AUTO) 0.9 (0.2-0.8); MONOCYTES % 10.6 % (4.4-11.3); NEUTROPHILS % 70.8 % (38.7-80.0); PLATELET COUNT 250 x10e3/uL (140-360); RED BLOOD COUNT 2.38 x10e6/uL (3.6-5.1); RED CELL DISTRIBUTION WIDTH 16.1 % (11.7-14.4); WHITE BLOOD COUNT 8.48 x10e3/uL (4.8-10.8)
[2023-04-27 07:04] LABS: ANION GAP 11.7 mmol/L (8-16); CALCIUM 7.9 mg/dL (8.4-10.2); CREATININE, SERUM 0.67 mg/dL (0.57-1.11); POTASSIUM 4.7 mmol/L (3.5-5.1)
[2023-04-27] MEDS: METHYLPREDNISOLONE SOD SUCC 40 MG/ML VIAL 1ML IV SCH (09:16)
[2023-04-27] MEDS: ASPIRIN 81 MG CHEW TAB PO SCH (09:17)
[2023-04-27] MEDS: MUPIROCIN 2% OINT 22 GM TUBE TOP SCH ×2 (09:17→19:38)
[2023-04-27] MEDS ORDERED: EPINEPHRINE 2.25% INH NEBU SOL 0.5 ML VIAL INH STA (10:48)
[2023-04-27 11:56] LABS: ABG HCO3 42 mmol/L (22-26); ABG PCO2 57 mmHg (35-45); ABG PH 7.48 (7.35-7.45); ABG PO2 100 mmHg (80-105); ABG TCO2 44
[2023-04-27 11:58] LABS: ABG HCO3 41 mmol/L (22-26); ABG PCO2 56 mmHg (35-45); ABG PH 7.47 (7.35-7.45); ABG PO2 95 mmHg (80-105); ABG TCO2 42
[2023-04-27] MEDS: NOREPINEPHRINE 8 MG/D5W 250 ML 250 ML IV SCH ×2 (12:00→14:15)
[2023-04-27] MEDS: ALPRAZOLAM 0.5 MG TAB NG PRN (12:35)
[2023-04-27] MEDS: SODIUM CHLORIDE 0.9% 1000ML 1,000 ML IV SCH (12:48)
[2023-04-27] MEDS: LINEZOLID 600 MG/D5W 300ML 300 ML IV SCH ×2 (12:52→23:56)
[2023-04-27 16:08] LABS: ABG PH 7.42 (7.35-7.45)
[2023-04-27 16:09] LABS: ABG HCO3 38 mmol/L (22-26); ABG PCO2 58 mmHg (35-45); ABG PO2 163 mmHg (80-105); ABG TCO2 40
[2023-04-27] MEDS: DEXMEDETOMIDINE 400MCG/NS100ML 100 ML IV PRN ×3 (16:22→22:22)
[2023-04-27] MEDS: QUETIAPINE FUMARATE 25 MG TAB PO PRN (16:25)
[2023-04-27] MEDS: ENOXAPARIN SOD INJ 40 MG/0.4 ML SYR SC SCH (17:43)
[2023-04-28] VITALS (54 sets, daily range): BP systolic 93–155; BP diastolic 48–89; PULSE 42–100; RESP 7–18; TEMP 96.8–100.1; O2SAT 94–100
[2023-04-28] MEDS: DEXMEDETOMIDINE 400MCG/NS100ML 100 ML IV PRN (03:12)
[2023-04-28] MEDS: ALBUTEROL/IPRATROPIUM 3 ML NEB NEB SCH ×5 (03:29→19:20)
[2023-04-28 06:08] LABS: BASOPHILS % 0.2 % (0.0-1.0); EOSINOPHILS # (AUTO) 0.2 (0.0-0.4); EOSINOPHILS % 3.1 % (0.0-6.0); HEMATOCRIT 22.2 % (34.2-44.1); HEMOGLOBIN 7.3 g/dL (12.0-16.0); LYMPHOCYTES % 16.5 % (18.0-39.1); MEAN CORPUSCULAR HEMOGLOBIN 31.7 pg (28-32); MEAN CORPUSCULAR HGB CONC 32.9 g/dL (31-35); MONOCYTES # (AUTO) 0.5 (0.2-0.8); MONOCYTES % 8.1 % (4.4-11.3); NEUTROPHILS # (AUTO) 4.4 (2.1-6.9); NEUTROPHILS % 71.6 % (38.7-80.0); PLATELET COUNT 193 x10e3/uL (140-360); RED CELL DISTRIBUTION WIDTH 15.7 % (11.7-14.4); WHITE BLOOD COUNT 6.19 x10e3/uL (4.8-10.8)
[2023-04-28 06:17] LABS: MEAN CORPUSCULAR VOLUME 96.5 fL (81-99)
[2023-04-28] MEDS: LEVOTHYROXINE SODIUM 100 MCG TAB NG SCH (06:28)
[2023-04-28] MEDS: MEROPENEM 1 GM in SODIUM CHLORIDE 0.9% 100 ML IV SCH ×3 (06:28→22:11)
[2023-04-28 06:29] LABS: ANION GAP 10.6 mmol/L (8-16); CALCIUM 8.6 mg/dL (8.4-10.2); CREATININE, SERUM 0.61 mg/dL (0.57-1.11); POTASSIUM 4.6 mmol/L (3.5-5.1)
[2023-04-28] MEDS: ASPIRIN 81 MG CHEW TAB PO SCH (08:15)
[2023-04-28] MEDS: MUPIROCIN 2% OINT 22 GM TUBE TOP SCH ×2 (08:15→20:46)
[2023-04-28] MEDS: ALPRAZOLAM 0.5 MG TAB NG PRN ×3 (08:15→20:45)
[2023-04-28] MEDS: METHYLPREDNISOLONE SOD SUCC 40 MG/ML VIAL 1ML IV SCH (08:15)
[2023-04-28] MEDS: SODIUM CHLORIDE 0.9% 1000ML 1,000 ML IV SCH (08:16)
[2023-04-28] MEDS: LINEZOLID 600 MG/D5W 300ML 300 ML IV SCH ×2 (11:21→23:14)
[2023-04-28] MEDS: ENOXAPARIN SOD INJ 40 MG/0.4 ML SYR SC SCH (16:41)
[2023-04-28] MEDS: ACETAMINOPHEN 325 MG TAB PO PRN ×2 (20:45→22:11)
[2023-04-29] VITALS (44 sets, daily range): BP systolic 106–156; BP diastolic 53–126; PULSE 69–90; RESP 11–24; TEMP 99.1–99.9; O2SAT 94–100
[2023-04-29] MEDS: ALBUTEROL/IPRATROPIUM 3 ML NEB NEB SCH ×7 (00:19→23:45)
[2023-04-29] MEDS: SODIUM CHLORIDE 0.9% 1000ML 1,000 ML IV SCH (04:31)
[2023-04-29] MEDS: MEROPENEM 1 GM in SODIUM CHLORIDE 0.9% 100 ML IV SCH ×3 (04:44→20:14)
[2023-04-29] MEDS: LEVOTHYROXINE SODIUM 100 MCG TAB NG SCH (06:01)
[2023-04-29 06:33] LABS: BASOPHILS % 0.4 % (0.0-1.0); EOSINOPHILS # (AUTO) 0.2 (0.0-0.4); EOSINOPHILS % 2.8 % (0.0-6.0); HEMATOCRIT 24.5 % (34.2-44.1); HEMOGLOBIN 7.9 g/dL (12.0-16.0); LYMPHOCYTES # (AUTO) 1.2 (1.0-3.2); LYMPHOCYTES % 14.8 % (18.0-39.1); MEAN CORPUSCULAR HEMOGLOBIN 31.7 pg (28-32); MEAN CORPUSCULAR HGB CONC 32.2 g/dL (31-35); MEAN CORPUSCULAR VOLUME 98.4 fL (81-99); MONOCYTES # (AUTO) 0.7 (0.2-0.8); NEUTROPHILS # (AUTO) 5.9 (2.1-6.9); NEUTROPHILS % 73.4 % (38.7-80.0); PLATELET COUNT 254 x10e3/uL (140-360); RED BLOOD COUNT 2.49 x10e6/uL (3.6-5.1); RED CELL DISTRIBUTION WIDTH 16.3 % (11.7-14.4); WHITE BLOOD COUNT 8.09 x10e3/uL (4.8-10.8)
[2023-04-29 07:00] LABS: ANION GAP 12.9 mmol/L (8-16); CALCIUM 8.7 mg/dL (8.4-10.2); CREATININE, SERUM 0.67 mg/dL (0.57-1.11); POTASSIUM 3.9 mmol/L (3.5-5.1)
[2023-04-29] MEDS: ASPIRIN 81 MG CHEW TAB PO SCH (08:04)
[2023-04-29] MEDS: MUPIROCIN 2% OINT 22 GM TUBE TOP SCH ×2 (08:04→20:14)
[2023-04-29] MEDS: METHYLPREDNISOLONE SOD SUCC 40 MG/ML VIAL 1ML IV SCH (08:04)
[2023-04-29] MEDS: ALPRAZOLAM 0.5 MG TAB NG PRN ×2 (08:04→20:13)
[2023-04-29] MEDS ORDERED: FUROSEMIDE INJ 10 MG/ML 2 ML VIAL IV ONE (09:45)
[2023-04-29] MEDS: LINEZOLID 600 MG/D5W 300ML 300 ML IV SCH ×2 (12:29→22:14)
[2023-04-29] MEDS: QUETIAPINE FUMARATE 25 MG TAB PO PRN (13:34)
[2023-04-29] MEDS: ENOXAPARIN SOD INJ 40 MG/0.4 ML SYR SC SCH (16:06)
[2023-04-29] MEDS: ACETAMINOPHEN 325 MG TAB PO PRN (20:13)
[2023-04-30] VITALS (32 sets, daily range): BP systolic 86–127; BP diastolic 45–71; PULSE 70–87; RESP 13–23; TEMP 98.1–99.6; O2SAT 95–100
[2023-04-30] MEDS: ALBUTEROL/IPRATROPIUM 3 ML NEB NEB SCH ×6 (03:24→23:18)
[2023-04-30] MEDS: LEVOTHYROXINE SODIUM 100 MCG TAB NG SCH (06:09)
[2023-04-30] MEDS: MEROPENEM 1 GM in SODIUM CHLORIDE 0.9% 100 ML IV SCH (06:10)
[2023-04-30 06:19] LABS: ANION GAP 12.6 mmol/L (8-16); CALCIUM 8.4 mg/dL (8.4-10.2); CREATININE, SERUM 0.68 mg/dL (0.57-1.11); POTASSIUM 3.6 mmol/L (3.5-5.1)
[2023-04-30] MEDS: ALPRAZOLAM 0.5 MG TAB NG PRN ×2 (06:53→14:58)
[2023-04-30 08:04] LABS: HEMATOCRIT 24.9 % (34.2-44.1); HEMOGLOBIN 7.9 g/dL (12.0-16.0); MEAN CORPUSCULAR HEMOGLOBIN 31.9 pg (28-32); MEAN CORPUSCULAR HGB CONC 31.7 g/dL (31-35); MEAN CORPUSCULAR VOLUME 100.4 fL (81-99); RED BLOOD COUNT 2.48 x10e6/uL (3.6-5.1); WHITE BLOOD COUNT 7.28 x10e3/uL (4.8-10.8)
[2023-04-30 08:05] LABS: BASOPHILS % 0.3 % (0.0-1.0); EOSINOPHILS # (AUTO) 0.2 (0.0-0.4); EOSINOPHILS % 2.7 % (0.0-6.0); LYMPHOCYTES # (AUTO) 1.1 (1.0-3.2); LYMPHOCYTES % 15.2 % (18.0-39.1); MONOCYTES # (AUTO) 0.7 (0.2-0.8); MONOCYTES % 8.9 % (4.4-11.3); NEUTROPHILS # (AUTO) 5.3 (2.1-6.9); NEUTROPHILS % 72.5 % (38.7-80.0); PLATELET COUNT 246 x10e3/uL (140-360); RED CELL DISTRIBUTION WIDTH 16.8 % (11.7-14.4)
[2023-04-30] MEDS: METHYLPREDNISOLONE SOD SUCC 40 MG/ML VIAL 1ML IV SCH (11:19)
[2023-04-30] MEDS: ASPIRIN 81 MG CHEW TAB PO SCH (11:19)
[2023-04-30] MEDS: CHOLESTYRAMINE 4 GM PACKET PO SCH (16:31)
[2023-04-30] MEDS: SODIUM CHLORIDE 0.9% 1000ML 1,000 ML IV SCH ×2 (16:31)
[2023-04-30] MEDS: ENOXAPARIN SOD INJ 40 MG/0.4 ML SYR SC SCH (16:31)
[2023-05-01] VITALS (12 sets, daily range): BP systolic 125–153; BP diastolic 62–74; PULSE 71–98; RESP 16–20; TEMP 97.3–99.1; O2SAT 95–100
[2023-05-01] MEDS: ALPRAZOLAM 0.5 MG TAB NG PRN ×3 (03:13→21:48)
[2023-05-01] MEDS: ALBUTEROL/IPRATROPIUM 3 ML NEB NEB SCH ×6 (03:18→20:44)
[2023-05-01] MEDS: LEVOTHYROXINE SODIUM 100 MCG TAB NG SCH (05:35)
[2023-05-01] MEDS: METHYLPREDNISOLONE SOD SUCC 40 MG/ML VIAL 1ML IV SCH (09:43)
[2023-05-01] MEDS: CHOLESTYRAMINE 4 GM PACKET PO SCH ×2 (09:44→17:50)
[2023-05-01] MEDS: ASPIRIN 81 MG CHEW TAB PO SCH (09:44)
[2023-05-01] MEDS: QUETIAPINE FUMARATE 25 MG TAB PO PRN (10:08)
[2023-05-01] MEDS: SODIUM CHLORIDE 0.9% 1000ML 1,000 ML IV SCH (13:15)
[2023-05-02] VITALS (14 sets, daily range): BP systolic 113–153; BP diastolic 56–83; PULSE 74–89; RESP 14–19; TEMP 98.1–98.8; O2SAT 95–100
[2023-05-02] MEDS: ALBUTEROL/IPRATROPIUM 3 ML NEB NEB SCH ×7 (00:26→23:01)
[2023-05-02] MEDS: LEVOTHYROXINE SODIUM 100 MCG TAB NG SCH (05:53)
[2023-05-02] MEDS: SODIUM CHLORIDE 0.9% 1000ML 1,000 ML IV SCH (08:40)
[2023-05-02] MEDS: CHOLESTYRAMINE 4 GM PACKET PO SCH ×2 (08:41→16:46)
[2023-05-02] MEDS: ASPIRIN 81 MG CHEW TAB PO SCH (08:41)
[2023-05-02] MEDS: ALPRAZOLAM 0.5 MG TAB NG PRN ×2 (08:41→15:36)
[2023-05-02] MEDS: METHYLPREDNISOLONE SOD SUCC 40 MG/ML VIAL 1ML IV SCH (08:41)
[2023-05-02] MEDS ORDERED: LEVOFLOXACIN 750MG/D5W 150ML 150 ML IV SCH (10:15)
[2023-05-02] MEDS ORDERED: CEFTRIAXONE 2 GM in SODIUM CHLORIDE 0.9% 100 ML IV SCH (11:00)
[2023-05-02] MEDS ORDERED: IOPAMIDOL 370 MG/ML 100 ML INFUS..BTL INJ ONE (13:14)
[2023-05-02] MEDS ORDERED: ONDANSETRON HCL 4 MG ORAL DISINTEGRATING TAB PO PRN (14:15)
[2023-05-03] VITALS (14 sets, daily range): BP systolic 114–154; BP diastolic 56–82; PULSE 72–88; RESP 18–21; TEMP 97.4–98.9; O2SAT 95–100
[2023-05-03] MEDS: ALPRAZOLAM 0.5 MG TAB NG PRN ×2 (03:39→17:10)
[2023-05-03] MEDS: ALBUTEROL/IPRATROPIUM 3 ML NEB NEB SCH ×6 (04:26→22:36)
[2023-05-03] MEDS: LEVOTHYROXINE SODIUM 100 MCG TAB NG SCH (09:18)
[2023-05-03] MEDS: CHOLESTYRAMINE 4 GM PACKET PO SCH ×2 (09:20→17:09)
[2023-05-03] MEDS: PREDNISONE 10 MG TAB PO SCH (09:20)
[2023-05-03] MEDS: ASPIRIN 81 MG CHEW TAB PO SCH (09:20)
[2023-05-03] MEDS: SODIUM CHLORIDE 0.9% 1000ML 1,000 ML IV SCH (09:24)
[2023-05-04] VITALS (13 sets, daily range): BP systolic 116–145; BP diastolic 62–74; PULSE 77–87; RESP 18–23; TEMP 97.4–98.5; O2SAT 96–100
[2023-05-04] MEDS: ALBUTEROL/IPRATROPIUM 3 ML NEB NEB SCH ×6 (02:34→23:24)
[2023-05-04] MEDS: ACETAMINOPHEN 325 MG TAB PO PRN ×2 (03:18→13:21)
[2023-05-04] MEDS: SODIUM CHLORIDE 0.9% 1000ML 1,000 ML IV SCH (04:00)
[2023-05-04] MEDS: LEVOTHYROXINE SODIUM 100 MCG TAB NG SCH (05:28)
[2023-05-04] MEDS: CHOLESTYRAMINE 4 GM PACKET PO SCH ×2 (09:00→16:20)
[2023-05-04] MEDS: ASPIRIN 81 MG CHEW TAB PO SCH (09:42)
[2023-05-04] MEDS: PREDNISONE 10 MG TAB PO SCH (09:42)
[2023-05-04] MEDS: ALPRAZOLAM 0.5 MG TAB NG PRN (09:45)
[2023-05-04] MEDS: QUETIAPINE FUMARATE 25 MG TAB PO PRN (20:32)
[2023-05-05] VITALS (8 sets, daily range): BP systolic 130–145; BP diastolic 63–80; PULSE 72–92; RESP 18–22; TEMP 97.4–98.6; O2SAT 91–100
[2023-05-05] MEDS: SODIUM CHLORIDE 0.9% 1000ML 1,000 ML IV SCH
[2023-05-05] MEDS: ALBUTEROL/IPRATROPIUM 3 ML NEB NEB SCH ×3 (02:57→12:07)
[2023-05-05] MEDS ORDERED: PROBIOTIC & AC1 EACH PO (05:40)
[2023-05-05] MEDS ORDERED: MULTIVITAMINS1 EAC6 PO (05:40)
[2023-05-05] MEDS ORDERED: CHOLESTYRAMINE L4 GM PO (05:40)
[2023-05-05] MEDS ORDERED: ASPIRIN CHEW81 MG PO (05:40)
[2023-05-05] MEDS ORDERED: PREDNISONE10 MG PO (05:40)
[2023-05-05] MEDS ORDERED: PANTOPRAZOLE SO40 MG PO (05:40)
[2023-05-05] MEDS ORDERED: SIMETHICONE80 MG PO (05:40)
[2023-05-05] MEDS ORDERED: PROVENTIL HFA6.7 GM INH (05:45)
[2023-05-05] MEDS ORDERED: LEVOTHYROXINE SODIUM 100 MCG TAB NG SCH ×2 (06:00)
[2023-05-05] MEDS ORDERED: LEVOTHYROXINE SODIUM 125 MCG TAB NG SCH (06:00)
[2023-05-05] MEDS ORDERED: PANTOPRAZOLE SOD 40 MG TABEC PO SCH (07:30)
[2023-05-05] MEDS: CHOLESTYRAMINE 4 GM PACKET PO SCH (09:00)
[2023-05-05] MEDS: ASPIRIN 81 MG CHEW TAB PO SCH (10:00)
[2023-05-05] MEDS ORDERED: ALPRAZOLAM 0.25 MG TAB PO ONE (11:30)
[2023-05-05] MEDS ORDERED: UNITHROID200 MCG PO (12:22)
== END 2023-05-05 14:05 | disposition home health service (06) | DRG 207 ==
LOC: ER 20:45 → ERHOLD 21:42 → MED/SURG3 23:54 → OBSVTOIN 04-16 10:19 → ICU 04-17 19:56 → MED/SURG2 04-30 15:31
PROVIDERS: ADMIT Internal Medicine; ATTEND Internal Medicine
PROC: 5A09457 Assistance with Respiratory Ventilation, 24-96 Consecutive Hours, Continuous Positive Airway Pressure (ICD-10-PCS; 2023-04-17)
PROC: 02HV33Z Insertion of Infusion Device into Superior Vena Cava, Percutaneous Approach (ICD-10-PCS; 2023-04-17)
PROC: B548ZZA Ultrasonography of Superior Vena Cava, Guidance (ICD-10-PCS; 2023-04-17)
PROC: 4A033R1 Measurement of Arterial Saturation, Peripheral, Percutaneous Approach (ICD-10-PCS; 2023-04-17)
PROC: 0BH17EZ Insertion of Endotracheal Airway into Trachea, Via Natural or Artificial Opening (ICD-10-PCS; principal; 2023-04-20)
PROC: 5A1955Z Respiratory Ventilation, Greater than 96 Consecutive Hours (ICD-10-PCS; 2023-04-20)
PROC: 3E0336Z Introduction of Nutritional Substance into Peripheral Vein, Percutaneous Approach (ICD-10-PCS; 2023-04-20)
PROC: 30233N1 Transfusion of Nonautologous Red Blood Cells into Peripheral Vein, Percutaneous Approach (ICD-10-PCS; 2023-04-24)
PROC: 0B21XEZ Change Endotracheal Airway in Trachea, External Approach (ICD-10-PCS; 2023-04-27)
PROC: 5A0935A Assistance with Respiratory Ventilation, Less than 24 Consecutive Hours, High Flow/Velocity Cannula (ICD-10-PCS; 2023-04-30)
DX: J21.0 Acute bronchiolitis due to respiratory syncytial virus (principal); J96.01 Acute respiratory failure with hypoxia; J96.02 Acute respiratory failure with hypercapnia; J12.1 Respiratory syncytial virus pneumonia; J44.0 Chronic obstructive pulmonary disease with (acute) lower respiratory infection; J44.1 Chronic obstructive pulmonary disease with (acute) exacerbation; M62.82 Rhabdomyolysis; J96.12 Chronic respiratory failure with hypercapnia; Z87.891 Personal history of nicotine dependence; Z99.81 Dependence on supplemental oxygen; Z11.52 Encounter for screening for COVID-19; E03.9 Hypothyroidism, unspecified; I10 Essential (primary) hypertension; Z68.34 Body mass index [BMI] 34.0-34.9, adult; R13.12 Dysphagia, oropharyngeal phase; E66.01 Morbid (severe) obesity due to excess calories; T88.8XXA Other specified complications of surgical and medical care, not elsewhere classified, initial encounter; R53.81 Other malaise; R19.7 Diarrhea, unspecified; D64.9 Anemia, unspecified; K74.60 Unspecified cirrhosis of liver; Z71.3 Dietary counseling and surveillance; E88.09 Other disorders of plasma-protein metabolism, not elsewhere classified; Z79.899 Other long term (current) drug therapy; Z79.01 Long term (current) use of anticoagulants; Y65.8 Other specified misadventures during surgical and medical care; Y92.230 Patient room in hospital as the place of occurrence of the external cause
CPT/HCPCS: 31500; 36415; 36569; 36600; 71045; 71250; 71260; 80048; 80053; 81001; 82550; 82805; 83036; 83540; 83690; 83735; 83880; 84439; 84443; 84466; 84480; 84484; 85007; 85014; 85018; 85025; 85027; 86850; 86900; 86920; 87040; 87070; 87086; 87186; 87205; 87420; 93005; 94003; 94640; 94660; 94664; 94799; 96361; 99252; 99284; G0378; J0330; J0696; J1650; J1940; J2020; J2060; J2185; J2250; J2920; J2930; J7030; J7050; J7512; P9016; Q9967; U0002

== ENCOUNTER → 2023-07-04 | Outpatient (REF) | payer BC ==
[~2023-07-04] MED LIST changes: +AIRSUPRA 90-810.7 GM INH; +ASPIRIN CHEW81 MG PO; +BREZTRI AEROS10.7 GM IH; +CHOLESTYRAMINE L4 GM PO; +LISINOPRIL-HCT1 EAC2 PO; +MULTIVITAMINS1 EAC6 PO; +PANTOPRAZOLE SO40 MG PO; +PREDNISONE10 MG PO; +PROBIOTIC & AC1 EACH PO; +PROVENTIL HFA6.7 GM INH; +SIMETHICONE80 MG PO; +UNITHROID200 MCG PO; +UNITHROID75 MCG PO
[2023-07-04 15:12] LABS: BASOPHILS # (AUTO) 0.1 (0.0-0.1); BASOPHILS % 1.1 % (0.0-1.0); EOSINOPHILS # (AUTO) 0.3 (0.0-0.4); EOSINOPHILS % 5.3 % (0.0-6.0); HEMATOCRIT 32.3 % (34.2-44.1); HEMOGLOBIN 10.5 g/dL (12.0-16.0); LYMPHOCYTES # (AUTO) 1.4 (1.0-3.2); LYMPHOCYTES % 21.9 % (18.0-39.1); MEAN CORPUSCULAR HEMOGLOBIN 31.8 pg (28-32); MEAN CORPUSCULAR HGB CONC 32.5 g/dL (31-35); MEAN CORPUSCULAR VOLUME 97.9 fL (81-99); MONOCYTES # (AUTO) 0.6 (0.2-0.8); MONOCYTES % 10.2 % (4.4-11.3); NEUTROPHILS # (AUTO) 3.8 (2.1-6.9); NEUTROPHILS % 61.3 % (38.7-80.0); PLATELET COUNT 204 x10e3/uL (140-360); RED CELL DISTRIBUTION WIDTH 11.9 % (11.7-14.4); WHITE BLOOD COUNT 6.26 x10e3/uL (4.8-10.8)
[2023-07-04 15:32] LABS: ANION GAP 12.9 mmol/L (8-16); CALCIUM 9.7 mg/dL (8.4-10.2); CREATININE, SERUM 0.69 mg/dL (0.57-1.11); POTASSIUM 3.9 mmol/L (3.5-5.1)
[2023-07-04 15:55] LABS: FREE T4 (FREE THYROXINE) 1.78 ng/dL (0.8-1.8); THYROID STIMULATING HORMONE 0.016 uIU/mL (0.350-4.940)
== END ==
LOC: RAD 14:32
PROVIDERS: ATTEND Internal Medicine Pulmonary Disease
DX: J44.9 Chronic obstructive pulmonary disease, unspecified (principal)
CPT/HCPCS: 36415; 71046; 80048; 84439; 84443; 85025

== ENCOUNTER 2024-02-28 19:02 | Emergency (ER) | payer BC ==
[~2024-02-28] VITALS: Ht 157.5 cm; Wt 86.2 kg
[2024-02-28 19:13] VITALS: TEMP 99.2
[2024-02-28 19:38] LABS: BASOPHILS # (AUTO) 0.1 (0.0-0.1); BASOPHILS % 0.6 % (0.0-1.0); EOSINOPHILS % 0.1 % (0.0-6.0); HEMATOCRIT 32.3 % (34.2-44.1); HEMOGLOBIN 10.5 g/dL (12.0-16.0); LYMPHOCYTES # (AUTO) 1.7 (1.0-3.2); LYMPHOCYTES % 21.9 % (18.0-39.1); MEAN CORPUSCULAR HEMOGLOBIN 30.9 pg (28-32); MEAN CORPUSCULAR HGB CONC 32.5 g/dL (31-35); MONOCYTES # (AUTO) 0.5 (0.2-0.8); MONOCYTES % 6.7 % (4.4-11.3); NEUTROPHILS # (AUTO) 5.4 (2.1-6.9); NEUTROPHILS % 70.4 % (38.7-80.0); PLATELET COUNT 229 x10e3/uL (140-360); RED CELL DISTRIBUTION WIDTH 12.1 % (11.7-14.4); WHITE BLOOD COUNT 7.72 x10e3/uL (4.8-10.8)
[2024-02-28 19:54] LABS: ALBUMIN/GLOBULIN RATIO 1.3 (0.8-2.0); ANION GAP 14.2 mmol/L (8-16); BILIRUBIN,TOTAL 0.3 mg/dL (0.2-1.2); CALCIUM 9.6 mg/dL (8.4-10.2); CREATININE, SERUM 0.88 mg/dL (0.57-1.11); POTASSIUM 4.2 mmol/L (3.5-5.1)
[2024-02-28 20:00] LABS: TROPONIN I 0.017 ng/mL (0-0.300)
[2024-02-28 21:03] VITALS: PULSE 75; RESP 20
[2024-02-28 21:47] VITALS: BP 112/62; PULSE 75; RESP 20; TEMP 99.2; O2SAT 100
== END 2024-02-28 21:24 | disposition home or self-care (01) ==
LOC: ER 19:09
DX: R06.02 Shortness of breath (principal); J44.9 Chronic obstructive pulmonary disease, unspecified; Z99.81 Dependence on supplemental oxygen; I10 Essential (primary) hypertension; E03.9 Hypothyroidism, unspecified; F41.9 Anxiety disorder, unspecified; Z86.718 Personal history of other venous thrombosis and embolism
CPT/HCPCS: 36415; 71045; 80053; 82550; 83880; 84484; 85025; 93005; 99283